=== PATIENT | female | born 1950 | race Caucasian/White ===

== ENCOUNTER 2023-02-23 14:32 | Outpatient (CLI) | payer MEDICARE, MEDICAID | END 2023-02-23 14:33 | disposition home or self-care (01) | LOC: CSHRAD 14:32 | PROVIDERS: ATTEND Physician Assistant Medical | DX: J44.9 Chronic obstructive pulmonary disease, unspecified (principal); Z86.010 Personal history of colon polyps; R15.9 Full incontinence of feces; R30.0 Dysuria | CPT/HCPCS: 71046 ==

== ENCOUNTER 2024-02-12 13:08 | Outpatient (CLI) | payer OTHER, MEDICAID | END 2024-02-12 13:09 | disposition home or self-care (01) | LOC: CSHMAMMO 13:08 | PROVIDERS: ATTEND Internal Medicine | DX: Z12.31 Encounter for screening mammogram for malignant neoplasm of breast (principal); M81.0 Age-related osteoporosis without current pathological fracture; M85.851 Other specified disorders of bone density and structure, right thigh; M85.852 Other specified disorders of bone density and structure, left thigh | CPT/HCPCS: 77063; 77067; 77080 ==

== ENCOUNTER 2024-11-02 09:44 | Emergency (ER) | payer MEDICARE, OTHER ==
[2024-11-02] MEDS ORDERED: HYDROmorphone 0.5 MG/0.5 ML SYRINGE ONE ×2 (10:09→12:42)
[2024-11-02] MEDS ORDERED: Ondansetron PF 4 MG/2 ML Vial ONE (10:09)
[2024-11-02] MEDS ORDERED: Ketorolac Tromethamine 30 MG (1 mL) VIAL ONE (10:10)
[2024-11-02 10:26] LABS: #Basophils Less than 0.03 10x3/uL (0.0-0.2); #Eosinophils 0.35 10x3/uL (0.0-0.5); #Monocytes 0.42 10x3/uL (0.0-1.1); #Neutrophils 8.24 10x3/uL (1.5-8.4); %Basophils 0.2 % (0.0-2.0); %Eosinophils 3.1 % (0.0-6.0); %Lymphocytes 20.0 % (18.0-47.0); %Monocytes 3.7 % (0.0-10.0); %Neutrophils 72.7 % (40.0-75.0); Hematocrit 42.1 % (34.9-44.5); Hemoglobin 13.7 g/dL (12.0-15.5); Mean Corpuscular Hemoglobin 33.2 pg (27.0-33.0); Mean Corpuscular Volume 101.9 fL (81.6-98.3); Platelet Count 251 10x3/uL (150-450); Red Blood Cell (RBC) Count 4.13 10x6/uL (3.90-5.03); White Blood Cell (WBC) Count 11.33 10x3/uL (3.5-10.5)
[2024-11-02 10:38] LABS: INR-International Normal Ratio 1.0; PTT 28.3 sec (22.0-33.0); Prothrombin Time 10.8 sec (9.5-12.1)
[2024-11-02 10:44] LABS: ALT (SGPT) Less than 7 U/L (Less than 34); AST (SGOT) 15 U/L (11-34); Albumin 3.5 g/dL (3.1-4.5); Alkaline Phosphatase 83 U/L (40-110); Anion Gap 16 mmol/L (10-20); BUN (Urea Nitrogen) 17 mg/dL (9.8-20.1); Bilirubin, Total 0.5 mg/dL (0.3-1.2); Calc. Creatinine Clearance 0 mL/min (70-130); Calcium 8.6 mg/dL (7.8-10.44); Carbon Dioxide 22 mmol/L (23-31); Chloride 107 mmol/L (98-107); Globulin 3.3 g/dL (2.4-3.5); Glucose 101 mg/dL (83-110); Lipase 58 U/L (8-78); Potassium 4.4 mmol/L (3.5-5.1); Sodium 141 mmol/L (136-145)
[2024-11-02 10:45] LABS: Troponin I Less than 0.010 ng/mL (< 0.028)
[2024-11-02] MEDS ORDERED: Pantoprazole 40 MG VIAL ONE (11:33)
== END 2024-11-02 13:15 ==
LOC: CSHERS 09:44
DX: K63.1 Perforation of intestine (nontraumatic) (principal); K81.0 Acute cholecystitis; J44.9 Chronic obstructive pulmonary disease, unspecified; I10 Essential (primary) hypertension; F17.210 Nicotine dependence, cigarettes, uncomplicated
CPT/HCPCS: 71045; 71275; 74177; 83605; 83690; 84484; 85610; 85730; 87040; 93005; J1171; J1885; J2185; J2405; J2470; 36415; 80053; 84443; 85025; 96365; 96372; 96375; 96376